=== PATIENT | male | born 1935 | race Caucasian/White ===

== ENCOUNTER 2019-04-05 12:40 | Day surgery (SDC) | payer MEDICARE, OTHER ==
[2019-04-05] VITALS (9 sets, daily range): BP systolic 104–136; BP diastolic 48–71; PULSE 65–92; TEMP 97.7
[~2019-04-05] VITALS: Ht 161.3 cm; Wt 87.7 kg
[~2019-04-05 12:40] MED LIST: ASPIRIN 81M81 MG/TA2 PO; ATARAX 10MG10 MG/TAB PO; B-121000 MCG PO; CATAPRES 0.1MG0.1 MG PO; FLOMAX 0.40.4 MG/CAP PO; GLUCOPHAGE500 MG/TAB PO; LEXAPRO 10MG10 MG PO; LIPITOR 40MG TA40 MG PO; MOBIC15 MG PO; MULTI VITAMINS1 TAB PO; NATURE'S BLEND100 M2 PO; PLAVIX 75MG TAB75 MG PO; SINEMET 25/101 UDTAB PO; TOPROL XL 25MG25 MG PO; ZYLOPRIM 100MG100 MG PO
[2019-04-05] MEDS ORDERED: ASPIRIN 81M81 MG/TA2 PO (13:44)
[2019-04-05] MEDS ORDERED: LIPITOR 40MG TA40 MG PO (13:48)
[2019-04-05] MEDS ORDERED: SINEMET 25/101 UDTAB PO (13:49)
[2019-04-05] MEDS ORDERED: PLAVIX 75MG TAB75 MG PO (13:51)
[2019-04-05] MEDS ORDERED: NORCO 325 MG-51 TAB PO (13:52)
[2019-04-05] MEDS ORDERED: TOPROL XL 25MG25 MG PO (13:54)
[2019-04-05] MEDS ORDERED: MOBIC15 MG PO (13:54)
[2019-04-05] MEDS ORDERED: REMERON 15M15 MG/TA1 PO (13:55)
[2019-04-05] MEDS ORDERED: SEROQUEL 2525 MG/TAB PO (13:57)
--- NOTE | 2019-04-05 14:54 | NUR ---
Initial visit; Patient and his thanked Extension Work Instructor for offering comfort and prayer prior to his surgical procedure.
--- NOTE | 2019-04-05 15:00 | NUR ---
The nurse rounded on the patient and his at this time. The patient appears to be resting comfortably on the cart at this time. The patient's denies any needs at this time. Will continue to monitor the patient.
--- NOTE | 2019-04-05 17:58 | NUR ---
Patient to room via bed by PACU staff. Patient denies pain or nausea at this time. Patient is alert, confused on where he is and date. Has dressing to tip of penis with scant amount of bloody discharge. in room with the patient.
--- NOTE | 2019-04-06 02:19 | NUR ---
Patient doing well tonight. was increasingly confused throughout the night and had to be reoriented several times. was found trying to get out of bed x3 times and out of bed in ramos once. bed alarm was on but patient is quick at times. 20 G L hand INT patent and flushes. patient has had x2 incontinent bloody voids in bed. ambulates well with cane. denies pain. no further needs at this time, patient resting comfortably in bed. will continue to monitor.
[2019-04-06 04:00] VITALS: BP 168/64; PULSE 55; TEMP 98.4
--- NOTE | 2019-04-06 07:30 | NUR ---
Patient bed alarm sounded, found patient standing at bedside. Patient is confused per his baseline, but states he needs to void. Assisted patient to bathroom, patient is incontinent before arriving. Urine is bloody but no clots observed. Patient assisted to perform hygine and patient assisted back to bed. Bed alarm on, call light within reach.
[2019-04-06 07:52] VITALS: BP 135/72; PULSE 79; TEMP 97.9
[2019-04-06 08:02] VITALS: BP 141/59; PULSE 29; TEMP 97.5
[2019-04-06 08:09] VITALS: PULSE 69
--- NOTE | 2019-04-06 10:43 | NUR ---
Follow-up visit; Patient thanked for checking in on him again today to see that he was recovering well from his surgical procedure.
--- NOTE | 2019-04-06 11:00 | NUR ---
Patient's at bedside, discharge teaching completed. Discussed discharge instructions, follow up appointments, and activity restrictions. Patient and deny questions or concerns. INT removed, catheter intact, hemostasis achieved. Patient and escorted to ED entrance where he entered a private vehicle.
--- NOTE | 2019-04-06 16:23 | NUR ---
Acquisition Advisor spoke with RNJessica who advised patient was disoriented over night. SW met with patient who struggled to answer demographic questions. Patient states he lives in [place] although listed address is in [place]. Patient is also unsure who his primary care physician is. SW contacted patient's , Angeles (ph#[phone]) to complete intake. Angeles reports patient lives with her in [place] and sees Dr. Lisa Bone for primary care. Patient obtains medications from [facility] pharmacy and his picks them up for him. Patient has a walker and cane at home and reports patient gets around the home okay. Patient's reports patient is independent with ADLS although she does provide some supervision when he showers. Patient recently was discharged to [facility] for a skilled stay. Patient's reports patient has been home and doing well. Patient's states patient experiences confusion but denies any wandering from the home. Patient's denies any concerns about patient returning home and states she will pick patient up later today. No additional discharge needs at this time.
== END 2019-04-06 11:25 | disposition home or self-care (01) ==
LOC: SDCO 12:40 → SURG 17:51 → SDCO 04-06 11:25
DX: N20.1 Calculus of ureter (principal); E11.9 Type 2 diabetes mellitus without complications; I25.10 Atherosclerotic heart disease of native coronary artery without angina pectoris; E78.00 Pure hypercholesterolemia, unspecified; D64.9 Anemia, unspecified; M10.9 Gout, unspecified; G20 Parkinson's disease; I10 Essential (primary) hypertension; N40.0 Benign prostatic hyperplasia without lower urinary tract symptoms; Z85.46 Personal history of malignant neoplasm of prostate; Z95.1 Presence of aortocoronary bypass graft; Z79.82 Long term (current) use of aspirin; Z79.02 Long term (current) use of antithrombotics/antiplatelets; Z79.4 Long term (current) use of insulin; Z92.3 Personal history of irradiation; Z87.891 Personal history of nicotine dependence; Z86.73 Personal history of transient ischemic attack (TIA), and cerebral infarction without residual deficits
CPT/HCPCS: OP; C1769; C2617; J0690; J1100; J2405; J2704; J3010; J7120; Q9967

== ENCOUNTER 2019-11-25 17:42 | Inpatient (IN) | payer MEDICARE, OTHER ==
[~2019-11-25] VITALS: Ht 162.6 cm; Wt 75.9 kg
[~2019-11-25 17:42] MED LIST changes: +NORCO 325 MG-51 TAB PO; +REMERON 15M15 MG/TA1 PO; +SEROQUEL 2525 MG/TAB PO
[2019-11-25 18:23] LABS: BASO # 0.1 (0.0-0.2); BASO % 0.5 % (0.0-2.0); EOS % 0.4 % (0-4.0); GRAN # 6.7 (1.4-6.5); GRAN % 72.2 % (42.2-75.2); HEMATOCRIT 43.7 % (42.0-52.0); HEMOGLOBIN 14.2 g/dl (13.5-18.0); LYMPH # 1.9 (1.2-3.4); LYMPH % 20.6 % (20.0-51.0); MEAN CELL VOLUME 93 fl (80.0-100.0); MEAN CORPUSCULAR HEMOGLOBIN 30 pg (27.0-31.0); MEAN CORPUSCULAR HGB CONC 33 g/dl (33.0-37.0); MEAN PLATELET VOLUME 9.5 fl (7.4-10.4); MONO # 0.6 (0.1-0.6); PLATELET COUNT 242 K/mm3 (130-400); RED BLOOD COUNT 4.72 M/mm3 (4.20-5.60); REDCELL DISTRIBUTION WIDTH-CV 14.1 % (11.5-14.5)
[2019-11-25 18:34] LABS: ALANINE AMINOTRANSFERASE 84 U/L (4-49); ALBUMIN 4.5 gm/dL (3.5-5.0); ALKALINE PHOSPHATASE 337 U/L (50-136); ANION GAP 14 mmol/L (7-16); AST,SGOT 416 U/L (15-37); BILIRUBIN,TOTAL 3.3 mg/dL (0.0-1.0); BLOOD UREA NITROGEN 26 mg/dL (9-20); CALCIUM 9.6 mg/dL (8.4-10.2); CARBON DIOXIDE 25 mmol/L (22-30); CHLORIDE 100 mmol/L (98-107); CREATININE, serum 1.21 (0.66-1.25); GLUCOSE 208 mg/dL (74-106); LIPASE 147 U/L (23-300); POTASSIUM 4.4 mmol/L (3.4-5.0); SODIUM 138 mmol/L (137-145); TOTAL PROTEIN 7.9 gm/dL (6.4-8.2)
[2019-11-25 18:44] LABS: TROPONIN-I < 0.012 ng/mL (0.000-0.035)
[2019-11-25 22:08] LABS: COLLECTION METHOD CLEAN CATCH
[2019-11-25 22:13] LABS: MUCOUS Present /lpf; PH 6 (5-8); SQUAMOUS EPITHELIAL None Seen /hpf; URINE APPEARANCE Clear; URINE BACTERIA Rare /hpf; URINE BILIRUBIN Negative (NEGATIVE); URINE BLOOD 1+ (NEGATIVE); URINE COLOR Yellow; URINE GLUCOSE Negative (NEGATIVE); URINE KETONE Negative (NEGATIVE); URINE LEUKOCYTE ESTERASE Negative (NEGATIVE); URINE NITRATE Negative (NEGATIVE); URINE PROTEIN(semi-quant) Negative (NEGATIVE); URINE UROBILINOGEN >=4.0 mg/dL (NEGATIVE)
[2019-11-25 22:43] VITALS: BP 123/57; PULSE 91; TEMP 99.7
--- NOTE | 2019-11-25 22:58 | NUR ---
Pt. arrived to the floor via stretcher and transfered to the bed with 2 assist. Pt. is alert and confused. Pt. denies pain or other needs, call light within reach, bed alarm on.
[2019-11-25 23:05] LABS: INR 1.2 (0.8-3.0); PROTHROMBIN TIME 13.6 SECONDS (9.7-12.8)
[2019-11-25] MEDS ORDERED: GLUCOPHAGE XR500 M1 PO (23:06)
[2019-11-26 03:53] VITALS: BP 135/72; PULSE 92; TEMP 100.5
[2019-11-26 05:35] LABS: BASO % 0.3 % (0.0-2.0); EOS # 0.2 (0.0-0.7); EOS % 2.6 % (0-4.0); GRAN # 5.1 (1.4-6.5); GRAN % 74.8 % (42.2-75.2); LYMPH % 14.5 % (20.0-51.0); MEAN CELL VOLUME 90 fl (80.0-100.0); MEAN CORPUSCULAR HGB CONC 33 g/dl (33.0-37.0); MEAN PLATELET VOLUME 9.6 fl (7.4-10.4); MONO # 0.5 (0.1-0.6); MONO % 7.2 % (1.7-9.3); PLATELET COUNT 162 K/mm3 (130-400); REDCELL DISTRIBUTION WIDTH-CV 14.7 % (11.5-14.5)
[2019-11-26 05:43] LABS: HEMOGLOBIN 11.6 g/dl (13.5-18.0); MEAN CORPUSCULAR HEMOGLOBIN 30 pg (27.0-31.0)
[2019-11-26 05:48] LABS: ALBUMIN 3.3 gm/dL (3.5-5.0); BILIRUBIN,TOTAL 3.8 mg/dL (0.0-1.0); CALCIUM 8.1 mg/dL (8.4-10.2); CREATININE, serum 1.09 (0.66-1.25); POTASSIUM 4.3 mmol/L (3.4-5.0)
[2019-11-26 07:13] VITALS: BP 109/63; PULSE 87; TEMP 99.6
--- NOTE | 2019-11-26 10:12 | NUR ---
Patient disoriented about where he is. Patient up for a walk with assistance. Patient now resting in bed. No complaints of pain.
[2019-11-26 11:23] VITALS: BP 128/57; PULSE 68; TEMP 97.4
--- NOTE | 2019-11-26 12:00 | NUR ---
rounded & plan of care reviewed with patient's . Consent obtained. Patient has been sleeping soundly in bed after sitting up in the chair this morning. Patient may now have clear liquids. Patient states that patient is normally on a pureed diet. Patient wanted also to make sure patient a DNR status. notified & order obtained.
--- NOTE | 2019-11-26 14:37 | NUR ---
Sw met patient at his bedside to discuss discharge planning, however patient could not tolerate interview, and so SW contacted patients Angeles at [phone] to complete intake. patient currently lives in [place] with his Angeles as care support and EMR. Patient was independent of ADL's and uses a wheelchair and a walker. Per Patients , his PCP is Dr. Bone, and he was scheduled to meet with her tomorrow. Patient gets his medications from [facility] with no concerns. Sw will continue to follow in order to determine needs.
[2019-11-26 15:41] VITALS: BP 109/61; PULSE 63; TEMP 97.3
--- NOTE | 2019-11-26 16:21 | NUR ---
Patient was up to chair with at bedside. Patient tolerated small sips of clear liquids. Patient then requested to get back in bed to get some rest. Patient ambulated well with assistance.
--- NOTE | 2019-11-26 18:56 | NUR ---
Patient up to the bathroom. Passed flatus, no BM. Patient tolerated clears for dinner, with assistance. Patient continues to be confused & reoriented as needed. High fall risk protocol follow. REport to Anish.
--- NOTE | 2019-11-26 19:50 | NUR ---
Pt. laying in bed at this time. Pt. is alert and confused. Shift assessment complete. INT to rt. forearm patent. Pt. assisted to and from the bathroom with 1 assist walker and gait belt. Pt. repositioned for comfort. Pt. denies pain or other needs, call light within reach, bed alarm on.
[2019-11-26 20:33] VITALS: BP 112/5; BP 112/52; PULSE 65; TEMP 98
[2019-11-26 23:49] VITALS: BP 111/44; PULSE 66; TEMP 99.2
[2019-11-27] VITALS (13 sets, daily range): BP systolic 102–160; BP diastolic 44–68; PULSE 42–78; TEMP 97.5–99.1
[2019-11-27 06:13] LABS: BASO % 0.5 % (0.0-2.0); EOS # 0.1 (0.0-0.7); EOS % 2.9 % (0-4.0); GRAN # 2.7 (1.4-6.5); GRAN % 70.2 % (42.2-75.2); HEMOGLOBIN 10.7 g/dl (13.5-18.0); LYMPH # 0.7 (1.2-3.4); MEAN CELL VOLUME 91 fl (80.0-100.0); MEAN CORPUSCULAR HEMOGLOBIN 30 pg (27.0-31.0); MEAN CORPUSCULAR HGB CONC 33 g/dl (33.0-37.0); MEAN PLATELET VOLUME 9.8 fl (7.4-10.4); MONO # 0.3 (0.1-0.6); MONO % 8.1 % (1.7-9.3); PLATELET COUNT 153 K/mm3 (130-400); RED BLOOD COUNT 3.58 M/mm3 (4.20-5.60); REDCELL DISTRIBUTION WIDTH-CV 14.9 % (11.5-14.5)
[2019-11-27 06:25] LABS: BILIRUBIN,TOTAL 3.5 mg/dL (0.0-1.0); CALCIUM 8.4 mg/dL (8.4-10.2); CREATININE, serum 1.05 (0.66-1.25); POTASSIUM 3.6 mmol/L (3.4-5.0); TOTAL PROTEIN 5.8 gm/dL (6.4-8.2)
[2019-11-27 06:28] LABS: HEMATOCRIT 32.4 % (42.0-52.0)
--- NOTE | 2019-11-27 08:00 | NUR ---
Patient in bed resting. Alert and confused. Denies pain at this time. Patient NPO for ERCP today. INT to right forarm with acewrap. Denies further needs at this time.
--- NOTE | 2019-11-27 17:48 | NUR ---
Patient has done well throughout the day, incontinent of urine, pericare provided. Patient will occassionally call when he needs to use the restroom, ambulates with x 1 assist and walker with steady gait. ERCP today and doing well post op. Continues to deny pain. Spouse at bedside througout the day. Denies further needs at this time. Will report off to slot shift supervisor.
--- NOTE | 2019-11-27 18:57 | NUR ---
Notified Dr. Ramos patient having bigeminal PVCs, asymptomatic per patient. No new orders at this time. Will continue to monitor.
--- NOTE | 2019-11-27 20:22 | NUR ---
PT REPORTS HAVING EMESIS, BED LINENS AND GOWN ARE WET AND CHANGED AT THIS TIME. HAS EMESIS WHEN WALKING BACK FROM BATHROOM, APPROX 200CC. IS ON CLEAR LIQUIDS. DENIES PAIN.
--- NOTE | 2019-11-27 22:34 | NUR ---
hvac maintenance technician called, pt in SR now.
[2019-11-28] VITALS (7 sets, daily range): BP systolic 126–154; BP diastolic 54–96; PULSE 59–731; TEMP 97.3–98.3
--- NOTE | 2019-11-28 04:00 | NUR ---
Has been resting well in bed, not impulsive. Denies need to use the bathroom at this time.
[2019-11-28 07:01] LABS: BASO % 0.2 % (0.0-2.0); GRAN # 4.3 (1.4-6.5); GRAN % 80.7 % (42.2-75.2); HEMOGLOBIN 11.1 g/dl (13.5-18.0); LYMPH # 0.6 (1.2-3.4); LYMPH % 11.1 % (20.0-51.0); MEAN CELL VOLUME 91 fl (80.0-100.0); MEAN CORPUSCULAR HEMOGLOBIN 30 pg (27.0-31.0); MEAN CORPUSCULAR HGB CONC 33 g/dl (33.0-37.0); MEAN PLATELET VOLUME 10.2 fl (7.4-10.4); MONO # 0.4 (0.1-0.6); MONO % 7.4 % (1.7-9.3); PLATELET COUNT 157 K/mm3 (130-400); RED BLOOD COUNT 3.67 M/mm3 (4.20-5.60); REDCELL DISTRIBUTION WIDTH-CV 15.1 % (11.5-14.5)
[2019-11-28 07:03] LABS: ALBUMIN 3.1 gm/dL (3.5-5.0); BILIRUBIN,TOTAL 4.3 mg/dL (0.0-1.0); CALCIUM 8.5 mg/dL (8.4-10.2); CREATININE, serum 0.94 (0.66-1.25); POTASSIUM 3.7 mmol/L (3.4-5.0); TOTAL PROTEIN 5.9 gm/dL (6.4-8.2)
[2019-11-28 07:14] LABS: HEMATOCRIT 33.5 % (42.0-52.0)
--- NOTE | 2019-11-28 08:11 | NUR ---
PATIENT SLEEPING IN BED AT BEDSIDE SHIFT REPORT. PATIENT SAT UP IN BED FOR BREAKFAST, DENIES PAIN. HEEL PROTECTORS AND BLANKETS FLOATED FOR TOE AND HEEL REDNESS.
--- NOTE | 2019-11-28 10:11 | NUR ---
PT/OT are recommending post-acute rehab. SW met with the patient to review d/c plan and to discuss therapy's recommendation. The patient reports that he would prefer to return home and do outpatient therapy. SW discussed SNF/inpatient rehab benefits. The patient states that there is an outpatient therapy clinic in [place] that he has been to in the past and would rather do that. SW contacted the patient's , Angeles. Angeles states that she is on her way to the hospital and would prefer to talk to SW when she arrives. SW to follow up with the patient and his when she arrives to the hospital.
--- NOTE | 2019-11-28 10:13 | NUR ---
Initial visit; Patient thanked Operations Planner for looking in on him and offering God's blessings.
--- NOTE | 2019-11-28 11:07 | NUR ---
The patient's arrived to the hospital. QUEENIE met with the patient and his , Angeles, to discuss post-acute rehab. Angeles is interested in post-acute rehab for the patient. Angeles chose 1) [facility] 2) [facility]. QUEENIE contacted and faxed a referral to both facilities. Ale, at [facility], reports that they are full at this time. QUEENIE updated Angeles and provided her with Medicare.gov's list of SNFs around [place]. Angeles chose [facility] as her new second preference. QUEENIE contacted and faxed a referral to Richardson at [facility]. SW awaiting their screens.
--- NOTE | 2019-11-28 11:56 | NUR ---
PATIENT AMBULATED ABOVE 150 FEET WITH NURSING STAFF, PT NEEDS QUES TO STAND UP STRAIGHT AND KEEP CLOSER TO WALKER. DR. VAIL ORDERED SLIDING SCALE HIGH AND ADA DIET TODAY, IF TOLERATING LOOKING AT DC TOMORROW.
--- NOTE | 2019-11-28 15:11 | NUR ---
Fernando, at [facility], reports that they are able to accept the patient for a skilled stay. QUEENIE informed the patient's , Angeles.
--- NOTE | 2019-11-28 19:10 | NUR ---
RECEIVED CHANGE OF SHIFT REPORT FROM DAY SHIFT NURSE. PATIENT UP IN CHAIR WITH CHAIR ALARM ON.
--- NOTE | 2019-11-28 20:11 | NUR ---
PATIENT DENIED PAIN TODAY, AMBULATED 3-4 TIMES OVER 150 FEET TODAY TO RELIEVE ANXIETY AND CONFUSION. PATIENT INCONTINENT OVER THE NIGHT AND ONCE WHILE GOING TO THE BATHROOM. HAD A SMALL HARD BM THIS EVENING.
--- NOTE | 2019-11-28 21:15 | NUR ---
PATIENT NOT ORIENTED TO PLACE/EVENT. REPEATS THE SAME QUESTIONS OF WHEN HE IS GOING TO HOME AND WHEN HE IS GOING TO BE WOKEN UP BY STAFF. TELE IN PLACE. BED ALARM ON WHEN IN BED.
[2019-11-29] VITALS (7 sets, daily range): BP systolic 132–158; BP diastolic 60–82; PULSE 68–82; TEMP 97.4–98.3
--- NOTE | 2019-11-29 07:30 | NUR ---
CHANGE OF SHIFT REPORT GIVEN TO DAY SHIFT NURSES, KINZA. PATIENT RESTING WITH EYES CLOSED, BED ALARM ON. DOES NOT WANT TO EAT BREAKFAST YET AT TIME OF REPORT.
[2019-11-29 08:30] LABS: ALBUMIN 3.2 gm/dL (3.5-5.0); BILIRUBIN,TOTAL 5.8 mg/dL (0.0-1.0); CALCIUM 8.7 mg/dL (8.4-10.2); CREATININE, serum 0.99 (0.66-1.25); MAGNESIUM 1.7 mg/dL (1.6-2.3); POTASSIUM 3.2 mmol/L (3.4-5.0); TOTAL PROTEIN 6.1 gm/dL (6.4-8.2)
--- NOTE | 2019-11-29 11:13 | NUR ---
rounded on patient and reviewed plan of care. Patient up to chair with at [facility]. No concerns or complaints from patient or .
--- NOTE | 2019-11-29 11:54 | NUR ---
The patient's bilirubin was elevated. The patient is to have a repeat ERCP tomorrow. QUEENIE notified and faxed updates to Fernando at [facility].
--- NOTE | 2019-11-29 12:44 | NUR ---
Patient in chair eating a pureed diet. Patient walked in hallway with therapy.
--- NOTE | 2019-11-29 19:19 | NUR ---
Patient up sitting in chair and asking about his . Patient reoriented and reminded that he is in the hospital.
--- NOTE | 2019-11-29 19:45 | NUR ---
CHANGE OF SHIFT REPORT RECEIVED FROM DAY SHIFT NURSES, KINZA. CHAIR ALARM ON WHILE UP CHAIR. TELE TAKEN OFF BY PATIENT, BUT PLACED BACK ON PATIENT. PATIENT NOT ORIENTED TO PLACE/TIME/EVENT, NOT COOPERATIVE AT THIS TIME, VERBALIZING WANTING TO GO HOME. SALINE LOCK TO L FOREARM INTACT. DENIES ANY DISCOMFORT OR NEEDS AT THIS TIME.
--- NOTE | 2019-11-29 19:57 | NUR ---
PATIENT UP IN CHAIR, VERBALIZING WANTING TO GO HOME STILL AND MAKING RANDOM COMMENTS ABOUT HOW HE WOULD BE ABLE TO GO HOME. DENIES ANY NEEDS WHEN ASKED. TELE IN PLACE.
--- NOTE | 2019-11-29 20:58 | NUR ---
PATIENT FOUND ON FLOOR AT FOOT OF RECLINER CHAIR, REPORT L KNEE DISCOMFORT, PROM TO LLE WITH NO C/O PAIN WITH MOVEMENT OF LLE, REPORT DISCOMFORT TO L FOREHEAD. SPEECH IS CLEAR, REMAIN DISORIENTED TO PLACE/TIME/EVENT. PATIENT STATES HE IS IN A [facility]. BED ALARM ON WHEN PATIENT PLACED TO BED.
--- NOTE | 2019-11-29 21:06 | NUR ---
CONTACTED HOSPITALIST PROVIDER SOA INTEGRATION ARCHITECT, NAN OF PATIENT'S FALL.
--- NOTE | 2019-11-29 21:07 | NUR ---
HOSPICE ADMITTING CLERK INFORMED OF PATIENT'S FALL.
--- NOTE | 2019-11-29 21:30 | NUR ---
UNABLE TO CONTACT PATIENT'S , CONTACTED/SPOKE WITH SON, ERIC, INFORMED SON OF PATIENT'S CURRENT STATUS WITH ORDERS GIVEN. UPDATED PATIENT'S 'S CONTACT # ( NO LONGER HAS A LAND LINE). NO OTHER PATIENT RELATED QUESTIONS/CONCERNS REPORTED FROM SON. STATES PATIENT'S IS MOST LIKELY ASLEEP.
--- NOTE | 2019-11-29 21:55 | NUR ---
LEFT MESSAGE FOR PROVIDER, NAN LEROY, INFORMING OF PATIENT'S AGITATION AND CONCERN THAT PATIENT WOULD NOT BE ABLE TO LAY STILL FOR CT SCAN OF HEAD & NECK. WAITING FOR CALL BACK.
--- NOTE | 2019-11-29 22:55 | NUR ---
NAN LEROY, EXAMINED PATIENT, NO NEW ORDERS GIVEN, OK FOR SCHEDULED MEDS TO BE GIVEN PRIOR TO CT SCAN, PATIENT COOPERATIVE TO TAKE MEDS WHILE STILL VERBALIZING WANTING TO GO HOME, CALL FAMILY, WONDERING WHO IS PRESENT WITH HIM, HOW WE BROKE INTO THE FURNITURE STORE. SPEAKING CLEARLY, NOT ORIENTED TO PLACE/TIME/EVEN, MOVES EXTREMITIES EQUALLY, REPORTS HAS PAIN TO L FOREHEAD WHEN ASKED BY STAFF WHERE HE HAS PAIN. BED ALARM ON.
[2019-11-30] VITALS (7 sets, daily range): BP systolic 123–157; BP diastolic 50–86; PULSE 62–92; TEMP 97.2–98.4
--- NOTE | 2019-11-30 04:22 | NUR ---
AWAKENS WITH NAME CALLED, RESPONDED APPROPRIATELY AT THIS TIME, REPORTS FEELING TIRED. OBSERVED BREATHING NONLABORED AND EVEN. ON ROOM AIR, DENIES ANY NEEDS OR COMPLAINTS AT THIS TIME. DENIES URGE TO VOID AT THIS TIME. TELE IN PLACE. BED ALARM ON.
--- NOTE | 2019-11-30 06:45 | NUR ---
LEFT MESSAGE ON PATIENT'S 'S VOICE MAIL INFORMING OF PATIENT'S FALL/CURRENT STATUS, AND ENCOURAGED TO CALL IF THEY HAVE ANY QUESTIONS.
[2019-11-30 06:57] LABS: INR 1.3 (0.8-3.0)
[2019-11-30 07:06] LABS: ALBUMIN 3.3 gm/dL (3.5-5.0); BILIRUBIN,TOTAL 4.5 mg/dL (0.0-1.0); CALCIUM 8.6 mg/dL (8.4-10.2); CREATININE, serum 0.92 (0.66-1.25); MAGNESIUM 1.8 mg/dL (1.6-2.3); POTASSIUM 3.4 mmol/L (3.4-5.0); TOTAL PROTEIN 6.2 gm/dL (6.4-8.2)
--- NOTE | 2019-11-30 07:26 | NUR ---
CHANGE OF SHIFT REPORT GIVEN TO DAY SHIFT NURSEADRIAN. BED ALARM ON. PATIENT SLEEPING DURING REPORT. TELE IN PLACE.
--- NOTE | 2019-11-30 09:45 | NUR ---
PATIENT SLEEPING IN BED AT BEDSIDE SHIFT REPORT. PATIENT HAD A FALL LAST NIGHT, FAMILY NOTIFIED, NEUROS HAVE BEEN BASELINE PER NIGHT NURSE. PATIENT RECEIVED SEROQUIL LATER THEN USUAL AND IS DROWSY THIS AM. HEEL PROTECTORS PLACED AND BED ALARM TURNED ON. PATIENT ON LEFT SIDE THIS AM.
--- NOTE | 2019-11-30 13:41 | NUR ---
The patient had an unwitnessed fall last night. He is to have a ERCP today. QUEENIE contacted and faxed updates to Fernando at [facility].
--- NOTE | 2019-11-30 19:33 | NUR ---
PATIENT HAS BEEN VERY LETHARGIC AND DROWSY ALL DAY, NEUROS HAVE BEEN BASELINE AND VS HAVE BEEN NORMAL. PATIENT WAS NPO BEFORE SURGERY AND WAS TAKEN DOWN FOR AN ERCP AROUND 1415. HE CAME BACK TO ROOM 344 AROUND 1700. VS HAVE BEEN NORMAL, LUNG SOUNDS SLIGHTLY DIMINISHED BUT NORMAL, HEART RHYTHM IRREGULAR RATE NORMAL. PATIENT CONTINUES TO WAKE UP AND IS STILL LETHARGIC, PT TOLERATED SIPS OF WATER OK. CONTINUING TO TURN PT AND CHECK FOR INCOTNINENCE AND HEEL PROTECTORS TO SONY HEELS.
--- NOTE | 2019-11-30 21:10 | NUR ---
PT DROWSY, AWAKENS FOR HS MEDS, TAKES WITHOUT PROBLEM. HAS SL TO LEFT FOREARM, FLUSHES WELL. FACE SHAVED AT THIS TIME. PT SLEPT THROUGH IT. HAS REDDENED HEELS AND COCCYX, REPOSITIONED Q2HR. PLACED SCDS ON PT.
[2019-12-01 00:20] VITALS: BP 134/61; PULSE 75; TEMP 98.8
--- NOTE | 2019-12-01 01:00 | NUR ---
PT STARTED CALLING OUT "HELLO". ASKING WHY HE IS HERE, HOW HE GOT HERE AND WHEN HE CAN GO HOME. MORE ORIENTED AT THIS TIME.
--- NOTE | 2019-12-01 02:55 | NUR ---
PT CONTINUES TO CALL OUT "HELLO" AND ASKING SAME QUESTIONS BEFORE. PT WANTED TO WALK, ASSISTED WITH ONE, GAIT BELT AND WALKER, WALKED IN HALLWAY TO MEDICAL DOOR AND BACK. GAIT STEADY.
[2019-12-01 03:30] VITALS: BP 147/63; PULSE 71; TEMP 97
--- NOTE | 2019-12-01 03:49 | NUR ---
CONTINUES TO WANT TO GO HOME, ASKING FOR IV SITE TO BE TAKEN OUT. EDUCATED PT AT THIS TIME AND REMINDED HE WOULD NEED TO WAIT FOR THE DOCTOR TO SEE HIM IN THE MORNING.
--- NOTE | 2019-12-01 04:03 | NUR ---
PT ASSISTED TO BATHROOM, VOIDS BRIGHT GOLD URINE. BACK TO BED WITH ASSIST. BED ALARM ON.
--- NOTE | 2019-12-01 06:08 | NUR ---
Pt pulled SL out and sat it on bedside table. Restarted #22 to left forearm on first attempt. Instructed pt to not remove.
[2019-12-01 06:45] LABS: BASO % 0.4 % (0.0-2.0); EOS # 0.2 (0.0-0.7); EOS % 3.3 % (0-4.0); GRAN # 2.8 (1.4-6.5); HEMATOCRIT 37.5 % (42.0-52.0); HEMOGLOBIN 12.1 g/dl (13.5-18.0); LYMPH # 1.4 (1.2-3.4); LYMPH % 28.5 % (20.0-51.0); MEAN CELL VOLUME 92 fl (80.0-100.0); MEAN CORPUSCULAR HEMOGLOBIN 30 pg (27.0-31.0); MEAN CORPUSCULAR HGB CONC 32 g/dl (33.0-37.0); MEAN PLATELET VOLUME 10.3 fl (7.4-10.4); MONO # 0.5 (0.1-0.6); MONO % 10.4 % (1.7-9.3); PLATELET COUNT 162 K/mm3 (130-400); RED BLOOD COUNT 4.06 M/mm3 (4.20-5.60); REDCELL DISTRIBUTION WIDTH-CV 15.8 % (11.5-14.5)
[2019-12-01 06:58] LABS: ALBUMIN 3.5 gm/dL (3.5-5.0); BILIRUBIN,TOTAL 2.9 mg/dL (0.0-1.0); CALCIUM 9.2 mg/dL (8.4-10.2); CREATININE, serum 0.95 (0.66-1.25); POTASSIUM 3.9 mmol/L (3.4-5.0); TOTAL PROTEIN 6.6 gm/dL (6.4-8.2)
--- NOTE | 2019-12-01 07:05 | NUR ---
Lying in bed with eyes open. Patient is alert, oriented to self but confused on location, why he is in hospital, and date. Patient keeps requesting to have the IV removed and repeatedly says that he wants to leave. Reassurance provided to patient, explain why he is in the hospital, patient again just requests to have IV removed and that he wants to leave. Skin and whites of eyes jaundiced. Abrasion and bruising noted to left forehead. Denies pain. Voices no further needs.
[2019-12-01 07:26] VITALS: BP 149/74; PULSE 70; TEMP 97.4
[2019-12-01 12:01] VITALS: BP 126/56; PULSE 90; TEMP 98.3
--- NOTE | 2019-12-01 14:56 | NUR ---
QUEENIE staffed with the clinical team. The patient is to tentatively be here through the weekend. QUEENIE notified and faxed updates to Fernando at [facility]. QUEENIE followed up with the patient's , Angeles. Angeles provides that the patient has been more agitated today and trying to take out his IV. QUEENIE notified his RN. QUEENIE provided Angeles with QUEENIE's weekend phone number. Angeles had no other questions for QUEENIE at this time. QUEENIE to continue to follow.
[2019-12-01 16:47] VITALS: BP 168/81; PULSE 70; TEMP 97.5
--- NOTE | 2019-12-01 16:51 | NUR ---
Patient continues to be alert and confused on date and location. Patient repeatedly says that he wants to leave the hospital and is not happy with the IV in his arm. Reassurance provided and attempt to reorient patient. Denies pain.
--- NOTE | 2019-12-01 18:14 | NUR ---
Patient becoming more agitated, not sitting still, yelling out. Keeps saying that he wants to see his mother as he and her are to have a heart operation. Attempt multiple times to reorient patient. Multiple different staff members have been in to talk with patient and to try to calm him down. Spoke with LAVONNE Toribio, and she says to give patient p.m. dose of Seroquel now. Administered as prescribed. Patient up at this time to ambulate in halls with NICHO Knott, to see if this will help to decrease patient's agitation.
--- NOTE | 2019-12-01 19:30 | NUR ---
Notified Magdalena LEROY regarding pts agitation. Order to repeat Seroquel 12.5mg x1.
[2019-12-01 19:38] VITALS: BP 140/65; PULSE 80; TEMP 97.7
--- NOTE | 2019-12-01 19:57 | NUR ---
Assisted pt to bed. Bed alarm on. Takes HS meds including repeat of Seroquel 12.5mg. SL to left forearm intact, flushes well.
--- NOTE | 2019-12-01 22:39 | NUR ---
PT TAKING OFF TELEMETRY, DOES NOT LEAVE IT ON REPEATEDLY. ORDER FROM TRACY HANDLEY TO D/C. MARK HAS BEEN IN SR SINCE November.
--- NOTE | 2019-12-02 | NUR ---
PT UP WALKING IN ROOM AND IN HALLWAYS WITH STAFF. REFUSES TO GO TO BED. KEEPS LOOKING FOR HIS . ATTEMPTED REORIENTATION WITHOUT SUCCESS.
[2019-12-02 01:08] VITALS: BP 108/67; PULSE 77; TEMP 97.8
--- NOTE | 2019-12-02 01:53 | NUR ---
PT STILL AWAKE, WILL NOT LAY IN THE BED. WALKING AROUND ROOM WITH STEADY GAIT. HAS STAFF AT BEDSIDE MONITORING SAFETY.
[2019-12-02 03:59] VITALS: BP 157/91; PULSE 75; TEMP 97.4
--- NOTE | 2019-12-02 04:00 | NUR ---
HAZMAT TECHNICIAN BHUPINDER NOTIFIED OF FALL.
--- NOTE | 2019-12-02 04:05 | NUR ---
PT HAS WITNESSED FALL ON FLOOR WITH STAFF PRESENT IN ROOM. HAS LARGE GOOSE EGG SWELLING TO RIGHT HEAD WITH ABRASION NOTED. HAS SKIN TEAR TO RIGHT WRIST. ASSISTED TO BED, SKIN TEAR DRESSED WITH STERI STRIPS AND VS OBTAINED. PT DID NOT LOSE CONSCIOUSNESS.
--- NOTE | 2019-12-02 04:10 | NUR ---
[facility] NOTIFIED OF FALL, NEW ORDERS RECEIVED FOR IV ATIVAN AND CT HEAD.
--- NOTE | 2019-12-02 04:25 | NUR ---
MEDICATED WITH ATIVAN 0.5MG IV AT THIS TIME. ASSISTED TO W/C FOR CT HEAD.
--- NOTE | 2019-12-02 04:30 | NUR ---
TAKEN TO CT SCAN VIA W/C. ICE TO RIGHT SCALP.
--- NOTE | 2019-12-02 04:45 | NUR ---
RETURNS TO ROOM FROM CT SCAN. ASSISTED TO BED WITH 2 ASSIST. ICE PACK TO RIGHT SCALP. BED ALARM ON.
--- NOTE | 2019-12-02 05:50 | NUR ---
LAB WORK OBTAINED. PT DROWSY, STILL HAS ICE PACK TO RIGHT SCALP HEMATOMA.
[2019-12-02 06:11] LABS: BASO % 0.4 % (0.0-2.0); EOS # 0.2 (0.0-0.7); EOS % 2.8 % (0-4.0); GRAN # 3.2 (1.4-6.5); GRAN % 59.5 % (42.2-75.2); HEMATOCRIT 36.9 % (42.0-52.0); HEMOGLOBIN 12.2 g/dl (13.5-18.0); LYMPH # 1.4 (1.2-3.4); LYMPH % 25.6 % (20.0-51.0); MEAN CELL VOLUME 91 fl (80.0-100.0); MEAN CORPUSCULAR HEMOGLOBIN 30 pg (27.0-31.0); MEAN CORPUSCULAR HGB CONC 33 g/dl (33.0-37.0); MEAN PLATELET VOLUME 9.7 fl (7.4-10.4); MONO # 0.6 (0.1-0.6); MONO % 11.1 % (1.7-9.3); PLATELET COUNT 160 K/mm3 (130-400); RED BLOOD COUNT 4.07 M/mm3 (4.20-5.60); REDCELL DISTRIBUTION WIDTH-CV 15.5 % (11.5-14.5)
[2019-12-02 06:20] LABS: ALBUMIN 3.7 gm/dL (3.5-5.0); BILIRUBIN,TOTAL 2.5 mg/dL (0.0-1.0); CALCIUM 9.2 mg/dL (8.4-10.2); CREATININE, serum 0.97 (0.66-1.25); POTASSIUM 3.5 mmol/L (3.4-5.0); TOTAL PROTEIN 6.8 gm/dL (6.4-8.2)
[2019-12-02 07:35] VITALS: BP 156/76; PULSE 87; TEMP 97.5
--- NOTE | 2019-12-02 07:50 | NUR ---
ENGINE COWLING INSTALLER SINTIA CALLED AND NOTIFIED THAT THE PATIENT IS NEEDING A C-SPINE COLLAR DUE TO A C-SPINE FRACTURE FOUND ON THE PATIENTS CT SCAN BY RADIOLOGIST .
--- NOTE | 2019-12-02 08:15 | NUR ---
PATIENT SHIFT ASSESSMENT COMPLETED AT THIS TIME. C-SPINE COLLAR WAS APPLIED BY THIS NURSE AND THE PROMOTIONS ASSISTANT. MEDICAL ALERT NECKLACE REMOVED AND PLACED IN PLASTIC BAG WITH PATIENT STICKER IN THE CLOSET IN PATIENTS ROOM. PATIENT WAS GRABBING AT THE RIGHT SIDE OF HIS HEAD. PATIENT TOOK AM MEDICATIONS ONE PILL AT A TIME WITH WATER WITHOUT ANY DIFFICULTIES. PATIENT GIVEN PRN PO TYLENOL FOR PAIN. PATIENT IS CONFUSED AND ORIENTED TO SELF ONLY. CALL LIGHT IN REACH. PATIENT SITTING IN CHAIR. ALARM ON. WILL CONTINUE TO MONITOR.
--- NOTE | 2019-12-02 09:48 | NUR ---
CT CALLED AND NOTIFIED OF ORDERED CT SCAN AND THAT THE PHYSICIAN WOULD LIKE FOR IT TO BE DONE SOON POSSIBLE. PATIENT GIVEN NOW DOSE OF IV ATIVAN FOR AGITATION.
--- NOTE | 2019-12-02 09:56 | NUR ---
PATIENT TAKEN TO CT VIA BED. WILL WAIT FOR PATIENT RETURN TO ROOM 344.
--- NOTE | 2019-12-02 10:13 | NUR ---
PATIENT ARRIVED BACK TO ROOM [address] PATIENT SETTELED INTO ROOM.
--- NOTE | 2019-12-02 12:16 | NUR ---
PATIENT IS SEDATED FROM IV ATIVAN. PATIENT IS SNORING AND DROOLING. PATIENTS HEAD OF BED ELEVATED. PATIENT WAS ABLE TO FOLLOW COMMANDS AND SQUEEZE THIS NURSES FINGERS. PATIENT OPENED EYES WHEN AROUSED. PATIENT HAS SOME FACIAL GRIMACING. C-SPINE COLLAR IN PLACE. PATIENT IS TOO ASLEEP TO EAT. INSULIN HELD. PRESENT AT THE BEDSIDE.
[2019-12-02 12:32] VITALS: BP 162/79; PULSE 80; TEMP 97.5
--- NOTE | 2019-12-02 15:12 | NUR ---
PATIENT IS AWAKE AFTER RECEIVING PRN IV ATIVAN FOR HIS CT SCAN AND AGITATION. PATIENT IS PLEASANT. PATIENT REPORTS A HEADACHE. PATIENT TOOK PO TYLENOL AND SINEMET AT THIS TIME. PATIENT TOOK PILLS ONE AT A TIME WITH SIPS OF WATER. PRESENT AT THE BEDSIDE. PATIENT CHANGED DUE TO INCONTINENT VOID. PATIENT REPOSITIONED IN BED. PRESENT IN THE ROOM. NO OTHER NEEDS AT THIS TIME.
--- NOTE | 2019-12-02 15:47 | NUR ---
REPORT GIVEN TO RIGO DUFFY.
[2019-12-02 16:22] VITALS: BP 128/63; PULSE 79; TEMP 97.7
--- NOTE | 2019-12-02 18:52 | NUR ---
Patient doing well this afternoon. Has been up to recliner then back to bed with x1 assist and walker. Seroquel given this afternoon for agitation. Reported off to shift production associate.
[2019-12-02 19:16] VITALS: BP 120/54; PULSE 92; TEMP 98.2
--- NOTE | 2019-12-02 19:38 | NUR ---
PT YELLING OUT, TRYING TO GET OOB, HAS LEGS HANGING OVER SIDE RAIL. STATING "I CAN'T STAY HERE". ATTEMPTED TO REINFORCE NEEDING TO STAY HERE FOR THE NIGHT. C-COLLAR ON. SL TO LFT FOREARM FLUSHES WELL. STERI STRIPS TO RT WRIST INTACT. PT IS CONFUSED. BED ALARM ON. MEDICATED WITH HS MEDS, REFUSED MELATONIN, DOSE OF ATIVAN 0.5MG IV AT THIS TIME.
--- NOTE | 2019-12-02 20:30 | NUR ---
PLACED MITTS ON PT, HE WAS TRYING TO REMOVE C-COLLAR AND IV SITE. STILL RESTLESS.
--- NOTE | 2019-12-02 22:00 | NUR ---
EYES CLOSED, ARMS MOVING, NO ATTEMPT AT THIS TIME TO GET OOB.
[2019-12-03 04:00] VITALS: BP 144/90; PULSE 81; TEMP 98
--- NOTE | 2019-12-03 06:00 | NUR ---
HAS RESTED WELL THIS SHIFT. C-COLLAR ON. MITTS IN PLACE TO PROTECT IV SITE AND C-COLLAR PLACEMENT.
[2019-12-03 07:44] LABS: BASO % 0.2 % (0.0-2.0); EOS # 0.3 (0.0-0.7); EOS % 5.1 % (0-4.0); GRAN # 2.5 (1.4-6.5); HEMATOCRIT 38.4 % (42.0-52.0); HEMOGLOBIN 12.2 g/dl (13.5-18.0); LYMPH # 1.4 (1.2-3.4); LYMPH % 29.6 % (20.0-51.0); MEAN CELL VOLUME 92 fl (80.0-100.0); MEAN CORPUSCULAR HEMOGLOBIN 29 pg (27.0-31.0); MEAN CORPUSCULAR HGB CONC 32 g/dl (33.0-37.0); MEAN PLATELET VOLUME 10.2 fl (7.4-10.4); MONO # 0.6 (0.1-0.6); MONO % 12.7 % (1.7-9.3); PLATELET COUNT 123 K/mm3 (130-400); RED BLOOD COUNT 4.17 M/mm3 (4.20-5.60); REDCELL DISTRIBUTION WIDTH-CV 15.6 % (11.5-14.5)
[2019-12-03 07:51] LABS: CALCIUM 8.8 mg/dL (8.4-10.2); CREATININE, serum 0.81 (0.66-1.25); POTASSIUM 3.7 mmol/L (3.4-5.0)
[2019-12-03 07:57] VITALS: BP 173/65; PULSE 71; TEMP 97.9
--- NOTE | 2019-12-03 08:59 | NUR ---
Patient resting in bed, snoring. Lying supine with bed at 20 degrees. Capital Collar Enhanced on. abrasion & brusing noted to top of his head. He has not had breakfast. Does arouse and hollar when woken, but falls right back asleep. Int to Lfa. Scds ble. High fall risk protocol followed.
--- NOTE | 2019-12-03 10:21 | NUR ---
Patient awake. Disoriented, asking why he is here. Patient reoriented as needed. Patient incontient of urine. Complete bedbath given with fresh linens. Barrier cream used. While patient lying supine in bed, c collar was removed to assess skin integrity- slight reddness noted to left side of neck. Patient ordered a fresh pureed breakfast tray. He had apple sauce with morning pills. Patient arrived this am as well.
[2019-12-03 10:33] LABS: ALBUMIN 3.6 gm/dL (3.5-5.0); BILIRUBIN UNCONJUGATED 0.9 mg/dL (0.0-1.1); BILIRUBIN,DIRECT 0.6 mg/dL (0.0-0.4); BILIRUBIN,TOTAL 1.5 mg/dL (0.0-1.0); TOTAL PROTEIN 6.7 gm/dL (6.4-8.2)
--- NOTE | 2019-12-03 11:33 | NUR ---
Patient used bedside commode. Large Bm. assisted with pericare. assisting with lunch.
[2019-12-03 11:54] VITALS: BP 119/64; PULSE 92; TEMP 98.6
--- NOTE | 2019-12-03 12:06 | NUR ---
SW received a call from hospitalist about patient. SW informed hospitalist that patient will be going to [facility], hospitalist asked if he would be receiving specialized services.. Sw asked if he felt it was needed at tis time, and hospitalist indicated that he was curious. Hospitalist advised that he would have more informationa bout patient tomorrow with a possible discharge on 12/04. QUEENIE faxed updates from 12/01-12/02 to [facility].
--- NOTE | 2019-12-03 12:39 | NUR ---
Patient assisted back to bed. home for the day. High fall risk protocol followed. Alarms on. Patient is sleeping.
--- NOTE | 2019-12-03 14:32 | NUR ---
Patient continues to sleep soundly. Snoring. Supine. C collar on. Will continue to montior.
--- NOTE | 2019-12-03 15:03 | NUR ---
Patient up to the chair. Incontinece of urine. pericare provided & new brief. Patient reoriented as needed. Asking about his , why he is here, when is he is going home. Patient provided with a chocolate milkshake. He is watching football on Tv. High fall risk protocol followed.
[2019-12-03 16:03] VITALS: BP 127/69; PULSE 82; TEMP 98.1
--- NOTE | 2019-12-03 17:31 | NUR ---
Patient resting in bed. He did not care for dinner. Continue to reoriente as needed. He yells out. He wants to go home. high fall risk followed.
--- NOTE | 2019-12-03 18:07 | NUR ---
Patient continues to yell out, trying to get out of bed. Very aggitated, stating his hates him. Prn seroquel given for his aggitation.
--- NOTE | 2019-12-03 19:20 | NUR ---
CHANGE OF SHIFT REPORT RECEIVED FROM DAY SHIFT NURSE. BED ALARM ON.
[2019-12-03 19:34] VITALS: BP 129/70; PULSE 76; TEMP 98.9
[2019-12-04 00:30] VITALS: BP 134/55; PULSE 96; TEMP 98.2
--- NOTE | 2019-12-04 02:43 | NUR ---
PATIENT YELLING OUT HELP, SLIGHT RESISTANCE WITH PIVOT TRANSFER TO [facility] AFTER STATING HE NEEDS TO GO TO THE BATHROOM.
[2019-12-04 03:55] VITALS: BP 129/62; PULSE 84; TEMP 98.1
[2019-12-04 06:30] LABS: BASO % 0.5 % (0.0-2.0); EOS # 0.3 (0.0-0.7); EOS % 6.3 % (0-4.0); GRAN # 2.1 (1.4-6.5); GRAN % 47.8 % (42.2-75.2); HEMOGLOBIN 12.4 g/dl (13.5-18.0); LYMPH # 1.5 (1.2-3.4); LYMPH % 32.7 % (20.0-51.0); MEAN CELL VOLUME 91 fl (80.0-100.0); MEAN CORPUSCULAR HEMOGLOBIN 30 pg (27.0-31.0); MEAN CORPUSCULAR HGB CONC 33 g/dl (33.0-37.0); MEAN PLATELET VOLUME 9.8 fl (7.4-10.4); MONO # 0.5 (0.1-0.6); PLATELET COUNT 194 K/mm3 (130-400); RED BLOOD COUNT 4.19 M/mm3 (4.20-5.60); REDCELL DISTRIBUTION WIDTH-CV 15.6 % (11.5-14.5)
[2019-12-04 06:43] LABS: CALCIUM 9.2 mg/dL (8.4-10.2); CREATININE, serum 0.9 (0.66-1.25); POTASSIUM 3.8 mmol/L (3.4-5.0)
--- NOTE | 2019-12-04 07:18 | NUR ---
CHANGE OF SHIFT REPORT GIVEN TO DAY SHIFT NURSETHOMAS. BED ALARM ON.
[2019-12-04 07:50] VITALS: BP 137/64; PULSE 74; TEMP 97.4
--- NOTE | 2019-12-04 08:00 | NUR ---
PATIENT IS ORIENTED TO PERSON BUT OTHERWISE CONFUSED. PATIENT HAS HX OF SEVERE DEMENTIA. PATIENT YELLS OUT "HELLO" A LOT. PATIENT REORIENTED FREQUENTLY. HIGH FALL RISK. PATIENT ASSISTED INTO BEDSIDE CHAIR WITH CHAIR ALARM ON. PUREE BREAKFAST AT BEDSIDE. AM BS WAS 135, NO SSI REQUIRED. AM MEDS GIVEN. LEFT FORARM IV TO INT. HEAD TO TOE ASSESSMENT COMPLETE. NEURO CHECKS WNL. PATIENT RESTING COMFORTABLY WITH CALL LIGHT IN REACH.
[2019-12-04 08:39] LABS: ALBUMIN 3.7 gm/dL (3.5-5.0); BILIRUBIN UNCONJUGATED 1.1 mg/dL (0.0-1.1); BILIRUBIN,DIRECT 0.7 mg/dL (0.0-0.4); BILIRUBIN,TOTAL 1.8 mg/dL (0.0-1.0); TOTAL PROTEIN 6.9 gm/dL (6.4-8.2)
[2019-12-04] MEDS ORDERED: OMNICEF 300MG300 MG PO (08:57)
[2019-12-04] MEDS ORDERED: NORVASC 5MG5 MG/TAB PO (08:58)
[2019-12-04] MEDS ORDERED: MELATIN 3 MG-11 TAB PO (08:59)
--- NOTE | 2019-12-04 11:26 | NUR ---
Patient is ready to be discharged and has orders to discharge to [facility]. QUEENIE collaborated with Fernando at [facility] about patient's COVID tests. Patient has had two negative tests (11/25/19, 11/27/24) and has a third test pending, per SNF guidelines for discharge testing. QUEENIE collaborated with RIGO [employer] Business Office Manager who advised patient's results should be in around 1700. QUEENIE provided this update to Fernando who reviewed this with his team and their Infectious Disease RN. Fernando advised they will admit patient this afternoon and just request that results of the third test be faxed over to them as soon as they are available. QUEENIE collaborated with patient's RN, Bhakti who advised she would be able to fax results if they come in after SW leaves. QUEENIE provided completed fax cover sheet to Bhakti in case. QUEENIE collaborated with Fernando at [facility] to set transport time for 1400. QUEENIE contacted patient's , Angeles to update on discharge plan to [facility] and transport time of 1400. Angeles is in agreement with discharge plan. QUEENIE read IM form aloud to Angeles who verbalized understanding and gave SW permission to sign on her behalf. QUEENIE placed form in chart. Patient will discharge to [facility] SNF this afternoon.
[2019-12-04 11:27] VITALS: BP 110/55; PULSE 92; TEMP 98.2
[2019-12-04 12:18] VITALS: BP 110/55; PULSE 92; TEMP 98.2
--- NOTE | 2019-12-04 15:30 | NUR ---
[facility]IA [facility] SERVICE NOW HERE, AN HOUR AND HALF LATE. PATIENT ASSISTED INTO WC. SENT PERSONAL BELONGINGS AND INFO PACKET. CALLED REPORT TO NURSE AT [facility]. PATIENT DISCHARGED.
--- NOTE | 2019-12-05 09:34 | NUR ---
Cnc Maintenance Mechanic faxed negative COVID results to [place] [facility].
== END 2019-12-04 15:30 | DRG 872 ==
LOC: COL.ER 17:42 → SURG 20:01
PROVIDERS: Emergency Medicine; Internal Medicine; Internal Medicine Gastroenterology; Nurse Practitioner Family; Physician Assistant; ADMIT Student in an Organized Health Care Education/Training Program
PROC: 0FC98ZZ Extirpation of Matter from Common Bile Duct, Via Natural or Artificial Opening Endoscopic (ICD-10-PCS; principal; 2019-11-25)
DX: A41.9 Sepsis, unspecified organism (principal); S12.000A Unspecified displaced fracture of first cervical vertebra, initial encounter for closed fracture; S12.191A Other nondisplaced fracture of second cervical vertebra, initial encounter for closed fracture; K80.62 Calculus of gallbladder and bile duct with acute cholecystitis without obstruction; R65.20 Severe sepsis without septic shock; E78.5 Hyperlipidemia, unspecified; I25.10 Atherosclerotic heart disease of native coronary artery without angina pectoris; E11.22 Type 2 diabetes mellitus with diabetic chronic kidney disease; N18.9 Chronic kidney disease, unspecified; G20 Parkinson's disease; Z20.828 Contact with and (suspected) exposure to other viral communicable diseases; F02.80 Dementia in other diseases classified elsewhere, unspecified severity, without behavioral disturbance, psychotic disturbance, mood disturbance, and anxiety; N40.0 Benign prostatic hyperplasia without lower urinary tract symptoms; F32.9 Major depressive disorder, single episode, unspecified; I12.9 Hypertensive chronic kidney disease with stage 1 through stage 4 chronic kidney disease, or unspecified chronic kidney disease; S00.03XA Contusion of scalp, initial encounter; M10.9 Gout, unspecified; Z95.1 Presence of aortocoronary bypass graft; Z79.84 Long term (current) use of oral hypoglycemic drugs; Z87.891 Personal history of nicotine dependence; W19.XXXA Unspecified fall, initial encounter
CPT/HCPCS: 99223-AI; 99232-AI; 99233-AI; 99239; C1769; J0696; J1815; J2060; J2405; J2704; J3010; J7030; Q9967

== ENCOUNTER 2020-01-31 22:14 | Emergency (ER) | payer MEDICARE, OTHER ==
[~2020-01-31] VITALS: Ht 154.9 cm; Wt 68.2 kg
[~2020-01-31 22:14] MED LIST changes: +GLUCOPHAGE XR500 M1 PO; +MELATIN 3 MG-11 TAB PO; +NORVASC 5MG5 MG/TAB PO; +OMNICEF 300MG300 MG PO
[2020-01-31 22:25] VITALS: TEMP 98.5
[2020-02-01 00:12] VITALS: BP 139/74; PULSE 75
== END 2020-02-01 00:52 | disposition home or self-care (01) ==
LOC: COL.ER 22:14
DX: S40.012A Contusion of left shoulder, initial encounter (principal); R53.1 Weakness; G20 Parkinson's disease; F02.80 Dementia in other diseases classified elsewhere, unspecified severity, without behavioral disturbance, psychotic disturbance, mood disturbance, and anxiety; Z85.46 Personal history of malignant neoplasm of prostate; Z95.1 Presence of aortocoronary bypass graft; Z79.02 Long term (current) use of antithrombotics/antiplatelets; Z79.84 Long term (current) use of oral hypoglycemic drugs; W01.0XXA Fall on same level from slipping, tripping and stumbling without subsequent striking against object, initial encounter